=== PATIENT | male | born 1995 | race Caucasian/White ===

== ENCOUNTER 2017-01-06 18:20 | Emergency (ER) | payer SELFPAY ==
[~2017-01-06] VITALS: Ht 180.3 cm; Wt 74.8 kg
[~2017-01-06 18:20] MED LIST: 'PARAFON FORTE500 M1 PO; AMOXICILLIN500 M2 PO; AMOXICILLIN500 MG PO; ANAPROX DS550 MG PO; ANUSOL-HC25 MG RC; AUGMENTIN 875 M1 TAB PO; AZITHROMYCIN500 M2 PO; CIPRO500 MG PO; CIPROFLOXACIN500 MG PO; CLARITIN10 MG PO; DELTASONE20 M1 PO; DOXYCYCLINE MO100 MG PO; DOXYCYCLINE100 M2 PO; DUONEB 3 MG/3 ML3 M1 INH; ERYTHROMYCIN5 MG/G1 OP; FLONASE 0.05% 121 EA NAS; HYDROCODONE BIT1 T11 PO; KEFLEX500 MG PO; MEDROL DOSEPAK4 MG PO; MOTRIN600 MG PO; MOTRIN800 MG PO; Miralax Powder255 GM PO; NAPROSYN500 MG PO; NKHM; PEN-VEE K500 MG PO; PREDNISONE10 MG PO; PREDNISONE20 M1 PO; PROTONIX40 MG PO; ROBITUSSIN AC 110 ML PO; ROBITUSSIN DM 105 ML PO; TESSALON PERLE100 M1 PO; TRAMADOL HCL50 MG PO; TYLENOL W/CODEI1 TA2 PO; VISTARIL25 M1 PO; ZANTAC 150150 MG PO; ZITHROMAX Z PA250 MG PO; ZITHROMAX250 MG PO; ZOFRAN ODT4 MG SL; ZYRTEC10 MG PO
[2017-01-06] MEDS ORDERED: ZOFRAN ODT4 MG SL (19:52)
[2017-01-06 19:56] LABS: BILIRUBIN NEGATIVE (NEGATIVE); BLOOD NEGATIVE (NEGATIVE); CLARITY CLEAR (CLEAR); COLOR YELLOW (YELLOW); GLUCOSE NEGATIVE (NEGATIVE); KETONE NEGATIVE (NEGATIVE); LEUKO ESTERASE NEGATIVE (NEGATIVE); NITRITE NEGATIVE (NEGATIVE); PROTEIN NEGATIVE (NEGATIVE); SPECIFIC GRAVITY 1.015 (1.005-1.030)
[2017-01-06 20:11] LABS: BACTERIA TRACE; URINE REFLEX COMMENT NO (NO); WBC 0-2 wbc/hpf (0-5)
== END 2017-01-06 20:40 | disposition home or self-care (01) ==
LOC: ED 18:20
PROVIDERS: Emergency Medicine Emergency Medical Services
DX: K52.9 Noninfective gastroenteritis and colitis, unspecified (principal); F17.200 Nicotine dependence, unspecified, uncomplicated; Z88.2 Allergy status to sulfonamides

== ENCOUNTER 2017-03-04 05:22 | Emergency (ER) | payer SELFPAY ==
[~2017-03-04] VITALS: Ht 180.3 cm; Wt 74.8 kg
[2017-03-04] MEDS ORDERED: PENICILLIN VK500 MG PO (05:45)
[2017-03-04] MEDS ORDERED: ULTRAM50 MG PO (05:45)
[2017-03-04] MEDS ORDERED: NAPROSYN500 MG PO (05:45)
== END 2017-03-04 06:13 | disposition home or self-care (01) ==
LOC: ED 05:22
DX: K02.9 Dental caries, unspecified (principal); F17.200 Nicotine dependence, unspecified, uncomplicated; Z88.2 Allergy status to sulfonamides

== ENCOUNTER 2017-03-17 22:41 | Emergency (ER) | payer SELFPAY ==
[~2017-03-17] VITALS: Ht 180.3 cm; Wt 74.8 kg
[~2017-03-17 22:41] MED LIST changes: +PENICILLIN VK500 MG PO; +ULTRAM50 MG PO
== END 2017-03-17 23:04 | disposition home or self-care (01) ==
LOC: ED 22:41
DX: R11.2 Nausea with vomiting, unspecified (principal); F17.200 Nicotine dependence, unspecified, uncomplicated; Z88.2 Allergy status to sulfonamides

== ENCOUNTER 2017-03-18 23:23 | Emergency (ER) | payer SELFPAY ==
[~2017-03-18] VITALS: Wt 74.8 kg
[2017-03-19 00:14] LABS: BASO % 0.4 % (0.0-1.0); EOS # 0.2 10*3/uL (0.0-0.4); EOS % 2.3 % (1.0-4.0); HEMATOCRIT 49.1 % (42.0-52.0); HEMOGLOBIN 16.5 g/dl (14.0-18.0); IG # 0.1 10*3/uL (0.0-0.1); LYMPH # 2.8 10*3/uL (1.3-4.4); LYMPH % 28.2 % (27.0-41.0); MEAN CELL VOLUME 91.4 fl (80.0-94.0); MEAN CORPUSCULAR HGB 30.7 pg (27.0-31.0); MEAN CORPUSCULAR HGB CONC 33.6 g/dl (33.0-37.0); MEAN PLATELET VOLUME 9.9 fl (9.6-12.3); MONO # 0.9 10*3/uL (0.1-1.0); MONO % 9.3 % (3.0-9.0); NEUT % 59.3 % (47.0-73.0); PLATELET COUNT AUTOMATED 217 10*3/uL (130-400); RED BLOOD COUNT 5.37 10*6/uL (4.50-5.90); RED CELL DISTRI WIDTH 12.3 % (0-14.5)
[2017-03-19] MEDS ORDERED: ZOFRAN ODT4 MG SL (00:21)
[2017-03-19] MEDS ORDERED: ANUSOL-HC25 MG R (00:21)
[2017-03-19 00:26] LABS: ALBUMIN 3.9 gm/dl (3.1-4.5); ALKALINE PHOSPHATASE 74 U/L (45-117); BUN 17 mg/dl (7-24); CARBON DIOXIDE 31 mmol/L (21-32); CHLORIDE 102 mmol/L (98-107); EST GLOM FILT AFRICAN AMERICAN > 60 ml/min; GLUCOSE 74 mg/dL (65-99); POTASSIUM 4.6 mmol/L (3.5-5.1); SGOT/AST 19 IU/L (3-35); SGPT/ALT 24 U/L (12-78); SODIUM 140 mmol/L (136-145); TOTAL PROTEIN 7.1 gm/dL (6.4-8.2)
== END 2017-03-19 00:47 | disposition home or self-care (01) ==
LOC: ED 23:23
PROVIDERS: Nurse Practitioner Family
DX: R10.9 Unspecified abdominal pain (principal); L29.0 Pruritus ani; R11.0 Nausea; K64.9 Unspecified hemorrhoids; F17.200 Nicotine dependence, unspecified, uncomplicated; Z88.2 Allergy status to sulfonamides

== ENCOUNTER 2017-04-26 19:33 | Emergency (ER) | payer SELFPAY ==
[~2017-04-26] VITALS: Ht 180.3 cm; Wt 79.4 kg
[~2017-04-26 19:33] MED LIST changes: +ANUSOL-HC25 MG R
== END 2017-04-26 22:05 | disposition short-term general hospital (02) ==
LOC: ED 19:33
DX: S09.90XA Unspecified injury of head, initial encounter (principal); H53.8 Other visual disturbances; F17.200 Nicotine dependence, unspecified, uncomplicated; Z88.2 Allergy status to sulfonamides; W50.0XXA Accidental hit or strike by another person, initial encounter; Y93.89 Activity, other specified; Y92.9 Unspecified place or not applicable; Y99.9 Unspecified external cause status

== ENCOUNTER 2017-06-08 10:51 | Emergency (ER) | payer SELFPAY ==
[~2017-06-08] VITALS: Ht 180.3 cm; Wt 79.4 kg
[2017-06-08] MEDS ORDERED: Peridex 473 ML473 ML PO (11:19)
[2017-06-08] MEDS ORDERED: PENICILLIN-VK500 M1 PO (11:19)
== END 2017-06-08 11:30 | disposition home or self-care (01) ==
LOC: ED 10:51
DX: K05.00 Acute gingivitis, plaque induced (principal); F17.200 Nicotine dependence, unspecified, uncomplicated; Z88.2 Allergy status to sulfonamides

== ENCOUNTER 2017-12-08 18:11 | Emergency (ER) | payer SELFPAY ==
[~2017-12-08] VITALS: Ht 180.3 cm; Wt 74.8 kg
[~2017-12-08 18:11] MED LIST changes: +PENICILLIN-VK500 M1 PO; +Peridex 473 ML473 ML PO
[2017-12-08] MEDS ORDERED: CYCLOBENZAPRINE10 MG PO (19:44)
[2017-12-08] MEDS ORDERED: MEDROL DOSEPAK4 MG PO (19:44)
[2017-12-08] MEDS ORDERED: NAPROSYN500 MG PO (19:44)
== END 2017-12-08 18:23 | disposition home or self-care (01) ==
LOC: ED 18:11
DX: M54.12 Radiculopathy, cervical region (principal); F17.200 Nicotine dependence, unspecified, uncomplicated; Z88.2 Allergy status to sulfonamides

== ENCOUNTER 2018-03-10 10:49 | Emergency (ER) | payer SELFPAY ==
[~2018-03-10] VITALS: Ht 180.3 cm; Wt 77.1 kg
[~2018-03-10 10:49] MED LIST changes: +CYCLOBENZAPRINE10 MG PO
== END 2018-03-10 13:18 | disposition home or self-care (01) ==
LOC: ED 10:49
DX: S39.012A Strain of muscle, fascia and tendon of lower back, initial encounter (principal); Z88.2 Allergy status to sulfonamides; X50.9XXA Other and unspecified overexertion or strenuous movements or postures, initial encounter; Y93.89 Activity, other specified; Y92.89 Other specified places as the place of occurrence of the external cause; Y99.8 Other external cause status

== ENCOUNTER 2018-04-02 20:11 | Emergency (ER) | payer SELFPAY ==
[~2018-04-02] VITALS: Ht 180.3 cm; Wt 69.9 kg
[2018-04-02 21:54] LABS: BILIRUBIN NEGATIVE (NEGATIVE); BLOOD NEGATIVE (NEGATIVE); CLARITY CLEAR (CLEAR); COLOR YELLOW (YELLOW); GLUCOSE NEGATIVE (NEGATIVE); KETONE NEGATIVE (NEGATIVE); LEUKO ESTERASE TRACE (NEGATIVE); NITRITE NEGATIVE (NEGATIVE)
[2018-04-02 22:00] LABS: BACTERIA 1+; EPITHELIAL CELLS 0-2; RBC 0-2 rbc/hpf (0-2)
== END 2018-04-02 21:45 | disposition home or self-care (01) ==
LOC: ED 20:11
PROVIDERS: Nurse Practitioner
DX: Z11.3 Encounter for screening for infections with a predominantly sexual mode of transmission (principal); Z88.2 Allergy status to sulfonamides

== ENCOUNTER 2018-11-30 22:27 | Emergency (ER) | payer OTHER ==
[~2018-11-30] VITALS: Ht 180.3 cm; Wt 74.8 kg
[2018-11-30 23:42] LABS: BASO % 0.4 % (0.0-1.0); EOS % 0.4 % (1.0-4.0); HEMATOCRIT 47.1 % (42.0-52.0); HEMOGLOBIN 16.3 g/dl (14.0-18.0); LYMPH # 1.3 10*3/uL (1.3-4.4); LYMPH % 23.9 % (27.0-41.0); MEAN CELL VOLUME 89.7 fl (80.0-94.0); MEAN CORPUSCULAR HGB CONC 34.6 g/dl (33.0-37.0); MEAN PLATELET VOLUME 9.7 fl (9.6-12.3); MONO % 17.3 % (3.0-9.0); NEUT # 3.2 10*3/uL (2.3-7.9); NEUT % 57.1 % (47.0-73.0); PLATELET COUNT AUTOMATED 170 10*3/uL (130-400); RED BLOOD COUNT 5.25 10*6/uL (4.50-5.90); RED CELL DISTRI WIDTH 12.4 % (0-14.5); WHITE BLOOD COUNT 5.6 10*3/uL (4.8-10.8)
[2018-12-01] MEDS ORDERED: ZITHROMAX250 MG PO
[2018-12-01] MEDS ORDERED: PROAIR HFA8.5 GM INH (00:02)
[2018-12-01 00:05] LABS: ALBUMIN 3.8 gm/dl (3.1-4.5); ALKALINE PHOSPHATASE 60 U/L (45-117); BUN 8 mg/dl (7-24); CHLORIDE 101 mmol/L (98-107); CREATININE 1.39 mg/dL (0.70-1.30); POTASSIUM 3.3 mmol/L (3.5-5.1); SGOT/AST 32 IU/L (3-35); SGPT/ALT 66 U/L (12-78); SODIUM 137 mmol/L (136-145); TOTAL PROTEIN 7.2 gm/dL (6.4-8.2)
== END 2018-12-01 00:12 | disposition home or self-care (01) ==
LOC: ED 22:27
PROVIDERS: Nurse Practitioner Family
DX: J06.9 Acute upper respiratory infection, unspecified (principal); F17.200 Nicotine dependence, unspecified, uncomplicated; Z88.2 Allergy status to sulfonamides; Z79.899 Other long term (current) drug therapy

== ENCOUNTER 2020-03-09 11:53 | Emergency (ER) | payer SELFPAY ==
[~2020-03-09] VITALS: Ht 180.3 cm; Wt 79.4 kg
[~2020-03-09 11:53] MED LIST changes: +PROAIR HFA8.5 GM INH
[2020-03-09 12:56] LABS: BASO % 0.4 % (0.0-1.0); EOS % 0.2 % (1.0-4.0); HEMATOCRIT 52.9 % (42.0-52.0); LYMPH # 1.4 10*3/uL (1.3-4.4); LYMPH % 13.4 % (27.0-41.0); MEAN CELL VOLUME 87.3 fl (80.0-94.0); MEAN CORPUSCULAR HGB 29.7 pg (27.0-31.0); MEAN PLATELET VOLUME 9.5 fl (9.6-12.3); MONO # 0.5 10*3/uL (0.1-1.0); MONO % 4.8 % (3.0-9.0); NEUT # 8.3 10*3/uL (2.3-7.9); NEUT % 80.3 % (47.0-73.0); PLATELET COUNT AUTOMATED 201 10*3/uL (130-400); RED BLOOD COUNT 6.06 10*6/uL (4.50-5.90); RED CELL DISTRI WIDTH 11.9 % (0-14.5); WHITE BLOOD COUNT 10.3 10*3/uL (4.8-10.8)
[2020-03-09 13:47] LABS: ALBUMIN 4.4 gm/dl (3.1-4.5); ALKALINE PHOSPHATASE 70 U/L (45-117); BUN 8 mg/dl (7-24); CHLORIDE 103 mmol/L (98-107); CREATININE 1.05 mg/dL (0.70-1.30); POTASSIUM 3.6 mmol/L (3.5-5.1); SGOT/AST 48 IU/L (3-35); SGPT/ALT 113 U/L (12-78); SODIUM 137 mmol/L (136-145)
[2020-03-09 14:00] LABS: URINE AMPHETAMINES > 1000 (1000ng/ml); URINE BARBITURATES < 200 (200ng/ml); URINE BENZODIAZEPINES < 200 (200ng/ml); URINE CANNABINOIDS (THC) < 50 (50ng/ml); URINE COCAINE < 300 (300ng/ml); URINE METHADONE < 300 (300ng/ml); URINE OPIATES < 300 (300ng/ml)
[2020-03-09 14:01] LABS: URINE PHENCYCLIDINE < 25 (25ng/ml)
[2020-03-09 14:04] LABS: COLOR YELLOW (YELLOW)
[2020-03-09 14:05] LABS: BILIRUBIN NEGATIVE (NEGATIVE); BLOOD NEGATIVE (NEGATIVE); CLARITY CLEAR (CLEAR); GLUCOSE NEGATIVE (NEGATIVE); KETONE NEGATIVE (NEGATIVE); LEUKO ESTERASE NEGATIVE (NEGATIVE); NITRITE NEGATIVE (NEGATIVE); PH 7.5 (5.0-9.0); SPECIFIC GRAVITY 1.005 (1.005-1.030); UROBILINOGEN 0.2 E.U./dl (0.2-1.0)
[2020-03-09 14:06] LABS: BACTERIA TRACE
== END 2020-03-09 14:19 | disposition home or self-care (01) ==
LOC: ED 11:53
PROVIDERS: Emergency Medicine
DX: R00.2 Palpitations (principal); R51 Headache; R74.0 Nonspecific elevation of levels of transaminase and lactic acid dehydrogenase [LDH]; F15.10 Other stimulant abuse, uncomplicated; Z88.2 Allergy status to sulfonamides

== ENCOUNTER 2020-03-09 18:13 | Emergency (ER) | payer SELFPAY ==
[~2020-03-09] VITALS: Ht 180.3 cm; Wt 77.1 kg
== END 2020-03-09 19:10 | disposition home or self-care (01) ==
LOC: ED 18:13
DX: R07.9 Chest pain, unspecified (principal); R00.2 Palpitations; Z88.2 Allergy status to sulfonamides

== ENCOUNTER 2020-04-13 01:24 | Emergency (ER) | payer SELFPAY ==
[~2020-04-13] VITALS: Ht 177.8 cm; Wt 77.1 kg
[2020-04-13] MEDS ORDERED: CEPHALEXIN500 M1 PO (05:23)
== END 2020-04-13 05:33 | disposition home or self-care (01) ==
LOC: ED 01:24
DX: S01.01XA Laceration without foreign body of scalp, initial encounter (principal); Z88.2 Allergy status to sulfonamides; W18.39XA Other fall on same level, initial encounter; Y93.89 Activity, other specified; Y92.89 Other specified places as the place of occurrence of the external cause; Y99.8 Other external cause status

== ENCOUNTER 2020-05-02 19:08 | Emergency (ER) | payer SELFPAY ==
[~2020-05-02] VITALS: Ht 180.3 cm; Wt 83.9 kg
[~2020-05-02 19:08] MED LIST changes: +CEPHALEXIN500 M1 PO
[2020-05-02 19:49] LABS: BASO % 0.4 % (0.0-1.0); EOS # 0.1 10*3/uL (0.0-0.4); EOS % 1.3 % (1.0-4.0); HEMATOCRIT 52.7 % (42.0-52.0); LYMPH # 1.8 10*3/uL (1.3-4.4); LYMPH % 17.9 % (27.0-41.0); MEAN CELL VOLUME 89.5 fl (80.0-94.0); MEAN CORPUSCULAR HGB 30.1 pg (27.0-31.0); MEAN CORPUSCULAR HGB CONC 33.6 g/dl (33.0-37.0); MEAN PLATELET VOLUME 9.5 fl (9.6-12.3); MONO # 1.3 10*3/uL (0.1-1.0); MONO % 13.4 % (3.0-9.0); NEUT # 6.6 10*3/uL (2.3-7.9); NEUT % 66.2 % (47.0-73.0); PLATELET COUNT AUTOMATED 218 10*3/uL (130-400); RED BLOOD COUNT 5.89 10*6/uL (4.50-5.90); RED CELL DISTRI WIDTH 12.9 % (0-14.5)
[2020-05-02 20:04] LABS: ALBUMIN 4.4 gm/dl (3.1-4.5); ALKALINE PHOSPHATASE 69 U/L (45-117); BUN 9 mg/dl (7-24); CHLORIDE 105 mmol/L (98-107); CREATININE 1.57 mg/dL (0.70-1.30); LIPASE 35 U/L (73-393); POTASSIUM 3.7 mmol/L (3.5-5.1); SGOT/AST 85 IU/L (3-35); SGPT/ALT 161 U/L (12-78); SODIUM 140 mmol/L (136-145); TOTAL PROTEIN 7.9 gm/dL (6.4-8.2)
[2020-05-02 21:56] LABS: CLARITY SL CLOUDY (CLEAR); COLOR YELLOW (YELLOW)
[2020-05-02 21:57] LABS: BILIRUBIN NEGATIVE (NEGATIVE); BLOOD NEGATIVE (NEGATIVE); GLUCOSE NEGATIVE (NEGATIVE); KETONE NEGATIVE (NEGATIVE); LEUKO ESTERASE NEGATIVE (NEGATIVE); NITRITE NEGATIVE (NEGATIVE); PH 7.5 (5.0-9.0); SPECIFIC GRAVITY 1.005 (1.005-1.030); UROBILINOGEN 0.2 E.U./dl (0.2-1.0)
[2020-05-02 22:03] LABS: BACTERIA TRACE; EPITHELIAL CELLS 0-2; RBC 0-2 rbc/hpf (0-2); WBC 0-2 wbc/hpf (0-5)
[2020-05-02 22:04] LABS: URINE AMPHETAMINES < 1000 (1000ng/ml); URINE BARBITURATES < 200 (200ng/ml); URINE BENZODIAZEPINES < 200 (200ng/ml); URINE CANNABINOIDS (THC) < 50 (50ng/ml); URINE COCAINE < 300 (300ng/ml); URINE METHADONE < 300 (300ng/ml); URINE OPIATES < 300 (300ng/ml); URINE PHENCYCLIDINE < 25 (25ng/ml)
[2020-05-02] MEDS ORDERED: ZOFRAN4 MG PO (23:50)
== END 2020-05-03 00:06 | disposition home or self-care (01) ==
LOC: ED 19:08
PROVIDERS: Nurse Practitioner Family
DX: R42 Dizziness and giddiness (principal); F17.200 Nicotine dependence, unspecified, uncomplicated; Z88.2 Allergy status to sulfonamides; Z79.899 Other long term (current) drug therapy

== ENCOUNTER 2021-04-04 23:40 | Emergency (ER) | payer SELFPAY ==
[~2021-04-04] VITALS: Ht 182.8 cm; Wt 87.1 kg
[~2021-04-04 23:40] MED LIST changes: +ZOFRAN4 MG PO
== END 2021-04-05 00:44 | disposition left against medical advice (07) ==
LOC: ED 23:40
DX: S00.03XA Contusion of scalp, initial encounter (principal); M54.2 Cervicalgia; Z53.29 Procedure and treatment not carried out because of patient's decision for other reasons; Z88.2 Allergy status to sulfonamides; Z79.2 Long term (current) use of antibiotics; Z79.899 Other long term (current) drug therapy; Y08.89XA Assault by other specified means, initial encounter; Y93.89 Activity, other specified; Y92.89 Other specified places as the place of occurrence of the external cause; Y99.8 Other external cause status

== ENCOUNTER 2021-04-05 21:34 | Emergency (ER) | payer SELFPAY ==
[~2021-04-05] VITALS: Ht 182.8 cm; Wt 81.6 kg
== END 2021-04-05 23:34 | disposition home or self-care (01) ==
LOC: ED 21:34
DX: S01.01XA Laceration without foreign body of scalp, initial encounter (principal); Z88.0 Allergy status to penicillin; Z79.899 Other long term (current) drug therapy; X58.XXXA Exposure to other specified factors, initial encounter; Y93.89 Activity, other specified; Y92.89 Other specified places as the place of occurrence of the external cause; Y99.8 Other external cause status

== ENCOUNTER 2022-03-15 10:32 | Emergency (ER) | payer BC ==
[~2022-03-15] VITALS: Ht 182.8 cm; Wt 90.7 kg
[2022-03-15] MEDS ORDERED: DOXYCYCLINE HY100 M3 PO (10:59)
== END 2022-03-15 11:15 | disposition home or self-care (01) ==
LOC: ED 10:32
DX: Z20.2 Contact with and (suspected) exposure to infections with a predominantly sexual mode of transmission (principal)

== ENCOUNTER 2022-05-03 11:02 | Emergency (ER) | payer BC ==
[~2022-05-03] VITALS: Wt 90.7 kg
[~2022-05-03 11:02] MED LIST changes: +DOXYCYCLINE HY100 M3 PO
[2022-05-03 11:51] LABS: BASO % 0.4 % (0.0-1.0); EOS # 0.3 10*3/uL (0.0-0.4); EOS % 5.1 % (1.0-4.0); HEMATOCRIT 51.9 % (42.0-52.0); LYMPH # 1.6 10*3/uL (1.3-4.4); LYMPH % 23.9 % (27.0-41.0); MEAN CELL VOLUME 91.9 fl (80.0-94.0); MEAN CORPUSCULAR HGB 30.8 pg (27.0-31.0); MEAN CORPUSCULAR HGB CONC 33.5 g/dl (33.0-37.0); MEAN PLATELET VOLUME 9.7 fl (9.6-12.3); MONO # 0.7 10*3/uL (0.1-1.0); MONO % 10.7 % (3.0-9.0); NEUT % 58.9 % (47.0-73.0); PLATELET COUNT AUTOMATED 179 10*3/uL (130-400); RED BLOOD COUNT 5.65 10*6/uL (4.50-5.90); RED CELL DISTRI WIDTH 12.5 % (0-14.5); WHITE BLOOD COUNT 6.7 10*3/uL (4.8-10.8)
[2022-05-03 12:10] LABS: ALKALINE PHOSPHATASE 57 U/L (45-117); BUN 16 mg/dl (7-24); CHLORIDE 108 mmol/L (98-107); CREATININE 1.16 mg/dL (0.70-1.30); LIPASE 61 U/L (73-393); SGOT/AST 26 IU/L (3-35); SGPT/ALT 67 U/L (12-78); SODIUM 139 mmol/L (136-145); TOTAL PROTEIN 6.4 gm/dL (6.4-8.2)
[2022-05-03 13:34] LABS: BILIRUBIN Negative (Negative); BLOOD Negative (Negative); CLARITY Clear (Clear); COLOR Yellow (Yellow); GLUCOSE Negative (Negative); KETONE Negative (Negative); LEUKO ESTERASE Negative (Negative); NITRITE Negative (Negative); SPECIFIC GRAVITY 1.015 (1.001-1.030)
[2022-05-03 14:14] LABS: BACTERIA 2+; MUCOUS TRACE
[2022-05-03] MEDS ORDERED: TOPCARE OMEPRAZ20 MG PO (14:52)
[2022-05-03] MEDS ORDERED: PEPCID20 MG PO (14:52)
== END 2022-05-03 14:55 | disposition home or self-care (01) ==
LOC: ED 11:02
PROVIDERS: Physician Assistant
DX: R10.13 Epigastric pain (principal); Z88.2 Allergy status to sulfonamides

== ENCOUNTER 2025-08-14 18:48 | Emergency (ER) | payer BC ==
[~2025-08-14] VITALS: Ht 177.8 cm; Wt 90.7 kg
[~2025-08-14 18:48] MED LIST changes: +PEPCID20 MG PO; +TOPCARE OMEPRAZ20 MG PO
[2025-08-14] MEDS ORDERED: ANALPRAM HC 2.530 GM R (20:16)
[2025-08-16] MEDS ORDERED: CLINDAMYCIN HC300 MG PO (21:47)
[2025-08-16] MEDS ORDERED: HYDROCODONE-AC1 EAC1 PO (22:09)
== END 2025-08-14 20:41 | disposition home or self-care (01) ==
LOC: ED 18:48
DX: K64.4 Residual hemorrhoidal skin tags (principal); Z88.2 Allergy status to sulfonamides